=== PATIENT | male | born 1975 | race American Indian/Alaskan Native ===

== ENCOUNTER 2017-02-20 22:02 | Observation (INO) | payer OTHER ==
--- NOTE | 2017-02-20 22:43 | ED PDOC ---
Syncope/Near Syncope/Dizzyness Time Seen by Provider: 02/20/17 22:09 Chief Complaint (Nursing): Substance Abuse Chief Complaint (Provider): Syncope History Per: Patient, Family () History/Exam Limitations: no limitations Onset/Duration Of Symptoms: Mins (prior to arrival) Current Symptoms Are (Timing): Gone Now (syncopal symptoms are gone now, patient has chest pain after CPR.) Activity At Onset Of Symptoms: Sitting Associated Symptoms Preceding Syncopal Episode: Other (shortness of breath) Severity: Moderate Additional Complaint(s): 41 year old male with no pertinent medical history is brought into the ED by EMS with he for complaints of a syncopal episode. HPI as per and patient: Patient was sitting in his car when he suddenly felt shortness of breath. His found him unconscious and unresponsive in his van, but heard breath sounds (did not check for a pulse). She took him out of the car and started giving him CPR. EMS came and patient was alert and oriented upon EMS arrival. He reports feeling left sided chest pain after the CPR which is exacerbated by inspiration and when he touches it. He denies having any other medical complaints. Of note: Patient admits to taking oxicodone that he got from his friend, along with naproxin for a leg cramp. PMD: patient does not have a PMD. Past Medical History Reviewed: Historical Data, Nursing Documentation, Vital Signs Vital Signs: Last Vital Signs Temp 97.9 F 02/20/17 22:04 Pulse 88 02/20/17 22:04 Resp 16 02/20/17 22:04 BP 119/87 02/20/17 22:04 Pulse Ox 100 02/20/17 22:04 - Medical History PMH: Asthma - Surgical History Surgical History: No Surg Hx - Family History Family History: States: Unknown Family Hx - Living Arrangements Living Arrangements: With Family - Social History Alcohol: None Drugs: Opiates (oxycodone) - Allergies Allergies/Adverse Reactions: Allergies Allergy/AdvReac Type Severity Reaction Status Date / Time No Known Allergies Allergy Verified 02/20/17 22:07 Review of Systems ROS Statement: Except As Marked, All Systems Reviewed And Found Negative Cardiovascular: Positive for: Chest Pain Respiratory: Positive for: Shortness of Breath Neurological: Positive for: Other (syncopal episode) Physical Exam - Reviewed Nursing Documentation Reviewed: Yes Vital Signs Reviewed: Yes - Physical Exam Appears: Positive for: Well, Non-toxic, No Acute Distress Head Exam: Positive for: ATRAUMATIC, NORMOCEPHALIC Skin: Positive for: Normal Color, Warm, Dry Eye Exam: Positive for: Normal appearance, EOMI, PERRL Cardiovascular/Chest: Positive for: Regular Rate, Rhythm. Negative for: Chest Non Tender (bilateral chest wall tenderness), Edema, Murmur Respiratory: Positive for: Normal Breath Sounds. Negative for: Crackles, Rhonchi, Wheezing, Respiratory Distress Extremity: Positive for: Normal ROM, Capillary Refill (normal). Negative for: Tenderness, Calf Tenderness, Swelling Neurologic/Psych: Positive for: Alert, Oriented (3x) - Laboratory Results Result Diagrams: 02/20/17 22:48 02/20/17 22:48 - ECG ECG: Positive for: Interpreted By Me, Viewed By Co ECG Rhythm: Positive for: Normal QRS, Normal ST Segment, Sinus Rhythm. Negative for: ST/T Changes Rate: 76 O2 Sat by Pulse Oximetry: 100 (RA) Pulse Ox Interpretation: Normal - Radiology X-Ray: Interpreted by Me, Viewed By Co X-Ray Interpretation: No Acute Disease - Progress Re-evaluation Time: 23:28 Condition: Re-examined, Improving,but remains with symptoms Medical Decision Making Medical Decision Makin:09 Initial impression: 41 year old patient status post syncopal episode. Differential diagnoses include but are not limited to cardiac dysrhythmia, opioid abuse. Less Likely diagnoses but also considered are cardiac arrest with bystander CPR. Initial plan: * CT chest w/ contrast * EKG * alcohol serum * BMP * drug screen urinary * troponin I * CBC * XRay chest 1 view * reevaluation Scribe Attestation: Documented by Phyllis Jo, acting as a scribe for Hanna Melchor MD. Provider Scribe Attestation: All medical record entries made by the Scribe were at my direction and personally dictated by me. I have reviewed the chart and agree that the record accurately reflects my personal performance of the history, physical exam, medical decision making, and the department course for this patient. I have also personally directed, reviewed, and agree with the discharge instructions and disposition. Disposition - Clinical Impression Clinical Impression: Chest pain, Syncope - Patient ED Disposition Is Patient to be Admitted: Transfer of Care - Disposition Disposition: Transfer of Care Disposition Time: 23:59 Condition: FAIR Patient Signed Over To: Patrice Alvarado Handoff Comments: pending CT chest
[2017-02-20 22:50] LABS: BASO % 0.4 % (0.0-2.0); EOS # 0.2 K/uL (0.0-0.7); EOS % 2.2 % (0.0-4.0); HEMATOCRIT 38.7 % (35.0-51.0); LYMPH # 2.1 K/uL (1.0-4.3); LYMPH % 28.1 % (20.0-40.0); MEAN CELL VOLUME 85.3 fl (80.0-94.0); MEAN CORPUSCULAR HGB CONC 32.8 g/dL (33.0-37.0); MEAN PLATELET VOLUME 7.3 fl (7.2-11.7); MONO # 0.5 K/uL (0.0-0.8); MONO % 6.7 % (0.0-10.0); NEUT # 4.7 K/uL (1.8-7.0); NEUT % 62.6 % (50.0-75.0); NRBC % 0.1 % (0.0-0.0); RED CELL DISTRIBUTION WIDTH 13.3 % (11.5-14.5); WHITE BLOOD COUNT 7.5 K/uL (4.8-10.8)
[2017-02-20 23:05] LABS: ALCOHOL SERUM < 10 mg/dl (0-10); BLOOD UREA NITROGEN 12 mg/dl (9-20); CALCIUM 9.5 mg/dL (8.4-10.2); CARBON DIOXIDE 26 mmol/L (22-30); CHLORIDE 102 mmol/L (98-107); GFR AFRICAN-AMERICAN > 60; GLUCOSE,RANDOM 114 mg/dL (75-110); POTASSIUM 3.4 MMOL/L (3.6-5.0); SODIUM 138 mmol/l (132-148)
[2017-02-20] MEDS ORDERED: Sodium Chloride 0.9% 50 ML IV ONE (23:23)
[2017-02-20] MEDS ORDERED: Iohexol 300 100 ML IJ ONE (23:23)
--- NOTE | 2017-02-21 00:14 | ED PDOC ---
- Laboratory Results Result Diagrams: 02/20/17 22:48 02/20/17 22:48 - ECG O2 Sat by Pulse Oximetry: 100 (RA) Medical Decision Making Medical Decision Making: Transfer of care from Dr. Melchor to Dr. Patrice Alvarado at [address] scan and admission. 0012 CT Chest With Intravenous Contrast Impression: 1. No evident acute abnormality. No etiology for the patient's chest pain is identified. 2.. Non-acute findings as described above. The physician spoke with Dr. Miranda (Hospitalist) who has agreed to admit the patient. Dx: Chest Pain and Syncope Scribe Attestation Documented by Carmencita Rhodes acting as a scribe for Patrice Alvarado MD. Provider Attestation: All medical record entries made by the Scribe were at my direction and personally dictated by me. I have reviewed the chart and agree that the record accurately reflects my personal performance of the history, physical exam, medical decision making, and the department course for this patient. I have also personally directed, reviewed, and agree with the discharge instructions and disposition. Disposition - Clinical Impression Clinical Impression: Chest pain, Syncope - POA Present On Arrival: None - Disposition Disposition: Hospitalized as Observation Patient Disposition Time: 01:00 Condition: FAIR
--- NOTE | 2017-02-21 00:56 | CP.PCM.HP ---
History of Present Illness - History of Present Illness History of Present Illness: PCP: None Chief complaint: Found Unresponsive in van HPI: The hx was obtained from the medical chart, the patient and his . He is a 41 years old male with hx of asthma, the last crisis being one month ago. He referred that he was sitting, then had a sudden unset of severe SOB. His next memory was his doing chest compressions on him and him having severe chest pain on inspiration. His mentioned that she found him unresponsive in his van with harsh breath sounds. She removed him from the van and began CPR and called EMS. The patient was awake, alert and oriented when EMS arrived. The patient complains of left sided pleuritic chest pain and referred that he had taken Oxycodone and Naprosyn prior for leg cramps. PMH: Asthma PSH: Left hand surgery for Benign tumor SH: light [id number] for 3days; No alcohol, No illegal drugs; Live with family Works driving school bus FH: No known family hx Allergies: NKDA Present on Admission - Present on Admission Any Indicators Present on Admission: No History of DVT/PE: No History of Uncontrolled Diabetes: No Urinary Catheter: No Decubitus Ulcer Present: No Review of Systems - Constitutional Constitutional: Headache. absent: Anorexia, Chills, Fatigue, Fever, Weakness - EENT Eyes: absent: Blurred Vision, Diplopia, Photophobia, Requires Corrective Lenses Ears: absent: Decreased Hearing, Ear Discharge, Ear Pain, Tinnitus Nose/Mouth/Throat: absent: Nasal Congestion, Nasal Discharge, Nasal Trauma, Sinus Pain, Sinus Pressure - Cardiovascular Cardiovascular: Chest Pain. absent: Dyspnea, Leg Edema, Orthopnea - Respiratory Respiratory: absent: Cough, Dyspnea, Wheezing, Stridor - Gastrointestinal Gastrointestinal: absent: Abdominal Pain, Diarrhea, Nausea, Vomiting - Genitourinary Genitourinary: absent: Dysuria, Hematuria, Urinary Frequency, Urinary Urgency - Musculoskeletal Musculoskeletal: absent: Muscle Weakness Additional comments: Left chest wall pain - Integumentary Integumentary: absent: Pruritus, Rash, Skin Ulcer, Sores, Striae, Swelling - Neurological Neurological: absent: Confusion, Dizziness, Vertigo, Weakness - Psychiatric Psychiatric: absent: Anxiety, Depression, Panic Attacks - Endocrine Endocrine: absent: Palpitations, Polydipsia, Polyphagia, Polyuria - Hematologic/Lymphatic Hematologic: absent: Easy Bleeding, Easy Bruising Past Patient History - Past Social History Smoking Status: Current Some Days Smoker Cigar Use: No Alcohol: None Drugs: Opiates (oxycodone) Home Situation {Lives}: With Family - CARDIAC Hx Cardiac Disorders: No - PULMONARY Hx Asthma: Yes - NEUROLOGICAL Hx Neurological Disorder: No - HEENT Hx HEENT Problems: No - RENAL Hx Chronic Kidney Disease: No - ENDOCRINE/METABOLIC Hx Endocrine Disorders: No - INTEGUMENTARY Hx Dermatological Problems: No - MUSCULOSKELETAL/RHEUMATOLOGICAL Hx Musculoskeletal Disorders: No - GASTROINTESTINAL Hx Gastrointestinal Disorders: No - GENITOURINARY/GYNECOLOGICAL Hx Genitourinary Disorders: No - PSYCHIATRIC Hx Psychophysiologic Disorder: No Hx Substance Use: Yes - SURGICAL HISTORY Hx Surgeries: Yes Other/Comment: left hand surgery (benign tumor) - ANESTHESIA Hx Anesthesia: Yes Hx Anesthesia Reactions: No Meds Allergies/Adverse Reactions: Allergies Allergy/AdvReac Type Severity Reaction Status Date / Time No Known Allergies Allergy Verified 02/20/17 22:07 Physical Exam - Constitutional Appears: No Acute Distress - Head Exam Head Exam: ATRAUMATIC, NORMAL INSPECTION, NORMOCEPHALIC - Eye Exam Eye Exam: EOMI, Normal appearance Pupil Exam: NORMAL ACCOMODATION, PERRL - ENT Exam ENT Exam: Mucous Membranes Moist, Normal Exam, Normal External Ear Exam, Normal Oropharynx - Neck Exam Neck exam: Positive for: Full Rom, Normal Inspection. Negative for: Lymphadenopathy, Tenderness - Respiratory Exam Respiratory Exam: Clear to Auscultation Bilateral. absent: Rales, Rhonchi, Wheezes - Cardiovascular Exam Cardiovascular Exam: REGULAR RHYTHM, RRR. absent: Gallop, JVD - GI/Abdominal Exam GI & Abdominal Exam: Normal Bowel Sounds, Soft. absent: Mass, Organomegaly, Tenderness - Rectal Exam Rectal Exam: Deferred - Extremities Exam Extremities exam: Positive for: full ROM, normal inspection. Negative for: calf tenderness Additional comments: Left chest wall tenderness - Back Exam Back exam: NORMAL INSPECTION. absent: CVA tenderness (L), CVA tenderness (R) - Neurological Exam Neurological exam: Alert, CN II-XII Intact, Oriented x3, Reflexes Normal - Psychiatric Exam Psychiatric exam: Normal Affect, Normal Mood - Skin Skin Exam: Dry, Intact, Normal Color, Warm Results - Vital Signs Recent Vital Signs: Last Vital Signs Temp 97.9 F 02/20/17 22:04 Pulse 76 02/20/17 23:56 Resp 16 02/20/17 22:04 BP 119/87 02/20/17 22:04 Pulse Ox 100 02/21/17 00:18 - Labs Result Diagrams: 02/20/17 22:48 02/20/17 22:48 Labs: Laboratory Results - last 24 hr 02/20/17 02/20/17 22:48 22:48 WBC 7.5 RBC 4.53 Hgb 12.7 Hct 38.7 MCV 85.3 MCH 28.0 MCHC 32.8 L RDW 13.3 Plt Count 239 MPV 7.3 Neut % (Auto) 62.6 Lymph % (Auto) 28.1 [place] % (Auto) 6.7 Eos % (Auto) 2.2 Baso % (Auto) 0.4 Neut # 4.7 Lymph # 2.1 [place] # 0.5 Eos # 0.2 Baso # 0.0 Sodium 138 Potassium 3.4 L Chloride 102 Carbon Dioxide 26 Anion Gap 13 BUN 12 Creatinine 0.8 Est GFR ( Amer) > 60 Est GFR (Non-Af Amer) > 60 Random Glucose 114 H Calcium 9.5 CK-MB (Mass) 0.37 Troponin I < 0.0120 Alcohol, Quantitative < 10 - Impressions Impression: NSR 76/min - Imaging and Cardiology CT scan - chest Status: Report reviewed by me Additional comment: Impression: 1. No evident acute abnormality. No etiology for the patient's chest pain is identified. 2.. Non-acute findings as described above. Chest x-ray Status: Image reviewed by me Additional comment: No infiltrates Assessment & Plan - Assessment and Plan (Free Text) Assessment: #.AMS found unresponsive #. Musculoskeletal chest wall pain #. Hypokalemia #. Anemia #. Hx of Asthma Plan: 41 years old male with hx of asthma, was sitting, when had a sudden unset of severe SOB. His next memory was his doing chest compressions on him and him having severe chest pain on inspiration. His mentioned that she found him unresponsive in his van with harsh breath sounds. She removed him from the van and began CPR and called EMS. The patient was awake, alert and oriented when EMS arrived. #.AMS with unresponsive probably due to depressed respiration by the oxycodone. - Neurochecks q4hrs #. Musculoskeletal chest wall pain r/o ACS - Consult cardiology Dr Ng - Serial troponin - Serial EKG - ASA/ lipid panel - pain management with Toradol #. Hypokalemia - Potassium repleated - Follow electrolytes #. Anemia - follow HB #. Hx of Asthma #. DVT prophylaxix with Lovenox #. Code Status: Full - Date & Time Date: 02/21/17 Time: 00:56
[2017-02-21] MEDS ORDERED: Potassium Chloride 20 mEq ER Tab PO ONE ×2 (01:34→02:19)
[2017-02-21 03:43] VITALS: RESP 18
[2017-02-21 07:53] VITALS: TEMP 98.2
--- NOTE | 2017-02-21 08:11 | CT ---
PROCEDURE: CT Chest with contrast HISTORY: chest pain COMPARISON: None. TECHNIQUE: Contiguous axial images were obtained through the chest with intravenous contrast enhancement. Sagittal and coronal reconstructions were performed. IV contrast: 90 cc Omnipaque 300. Radiation dose (DLP): 182.88 S mGy-cm. This CT exam was performed using one or more of the following dose reduction techniques: Automated exposure control, adjustment of the mA and/or kV according to patient size, and/or use of iterative reconstruction technique. FINDINGS: LUNGS: Clear lungs. Visualized airway clear. MEDIASTINUM: Unremarkable thoracic aorta. No aneurysm or dissection. Normal sized heart. Main pulmonary artery unremarkable. No vascular congestion. No lymphadenopathy. PLEURA: No pleural fluid. No pneumothorax. BONES: No fracture. No destructive lesion. UPPER ABDOMEN: Grossly unremarkable. OTHER FINDINGS: None. IMPRESSION: No acute findings related to/accounting for the clinical presentation. Concordant results (preliminary interpretation) provided by [email or web address]. Procedure Completed: 23:44. Preliminary ([facility]) Report: Dictated and Authenticated: 00:12. Final Interpretation: 08:09. February 21, 2017.
--- NOTE | 2017-02-21 08:31 | RAD ---
PROCEDURE: CHEST RADIOGRAPH, 1 VIEW HISTORY: chest pain COMPARISON: None. FINDINGS: LUNGS: Clear. PLEURA: No pneumothorax or pleural fluid seen. CARDIOVASCULAR: No radiographic findings to suggest acute or significant cardiovascular disease. OSSEOUS STRUCTURES: No significant abnormalities. VISUALIZED UPPER ABDOMEN: Normal. OTHER FINDINGS: None. IMPRESSION: No active pulmonary disease.
--- NOTE | 2017-02-21 08:43 | CT ---
PROCEDURE: CT HEAD WITHOUT CONTRAST. HISTORY: syncope COMPARISON: None available. TECHNIQUE: Axial computed tomography images were obtained through the head/brain without intravenous contrast. Radiation dose: Total exam DLP = 1837.98 mGy-cm. This CT exam was performed using one or more of the following dose reduction techniques: Automated exposure control, adjustment of the mA and/or kV according to patient size, and/or use of iterative reconstruction technique. FINDINGS: HEMORRHAGE: No intracranial hemorrhage. BRAIN: No mass effect or edema. No atrophy or chronic microvascular ischemic changes. VENTRICLES: Unremarkable. No hydrocephalus. CALVARIUM: Unremarkable. PARANASAL SINUSES: Unremarkable as visualized. No significant inflammatory changes. MASTOID AIR CELLS: Unremarkable as visualized. No inflammatory changes. OTHER FINDINGS: None. IMPRESSION: No acute intracranial abnormalities. No significant findings to account for the clinical presentation.
--- NOTE | 2017-02-21 08:45 | CP.PCM.CON ---
History of Present Illness - History of Present Illness History of Present Illness: Chief complaint: Found Unresponsive in van HPI: The hx was obtained from the medical chart, the patient and his . He is a 41 years old male with hx of asthma, the last crisis being one month ago. He referred that he was sitting, then had a sudden unset of severe SOB. His next memory was his doing chest compressions on him and him having severe chest pain on inspiration. His mentioned that she found him unresponsive in his van with harsh breath sounds. She removed him from the van and began CPR and called EMS. The patient was awake, alert and oriented when EMS arrived. The patient complains of left sided pleuritic chest pain and referred that he had taken Oxycodone and Naprosyn prior for leg cramps. 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 Troponin:neg EKG: Toxicology: + Opiates The chest apin is reproducible with palpation most likely 2* to CPR from his Past Patient History - Past Medical History & Family History Past Medical History?: Yes - Past Social History Smoking Status: Current Some Days Smoker Cigar Use: No Alcohol: None Drugs: Opiates (oxycodone) Home Situation {Lives}: With Family - CARDIAC Hx Cardiac Disorders: No - PULMONARY Hx Asthma: Yes - NEUROLOGICAL Hx Neurological Disorder: No - HEENT Hx HEENT Problems: No - RENAL Hx Chronic Kidney Disease: No - ENDOCRINE/METABOLIC Hx Endocrine Disorders: No - HEMATOLOGICAL/ONCOLOGICAL Hx Blood Disorders: No Hx AIDS: No Hx Human Immunodeficiency Virus (HIV): No - INTEGUMENTARY Hx Dermatological Problems: No - MUSCULOSKELETAL/RHEUMATOLOGICAL Hx Musculoskeletal Disorders: No - GASTROINTESTINAL Hx Gastrointestinal Disorders: No - GENITOURINARY/GYNECOLOGICAL Hx Genitourinary Disorders: No - PSYCHIATRIC Hx Psychophysiologic Disorder: No Hx Substance Use: Yes - SURGICAL HISTORY Hx Surgeries: Yes Other/Comment: left hand surgery (benign tumor) - ANESTHESIA Hx Anesthesia: Yes Hx Anesthesia Reactions: No Meds Allergies/Adverse Reactions: Allergies Allergy/AdvReac Type Severity Reaction Status Date / Time No Known Allergies Allergy Verified 02/20/17 22:07 - Medications Medications: Current Medications Aspirin (Ecotrin) 81 mg PO DAILY [facility] Enoxaparin Sodium (Lovenox) 40 mg SC DAILY [facility] PRN Reason: Protocol Ketorolac Tromethamine (Toradol) 30 mg IVP Q6 PRN PRN Reason: Pain, severe (8-10) Ketorolac Tromethamine (Toradol) 15 mg IVP Q6 PRN PRN Reason: Pain, moderate (4-7) Results - Vital Signs Recent Vital Signs: Last Vital Signs Temp 98.2 F 02/21/17 07:53 Pulse 70 02/21/17 07:53 Resp 18 02/21/17 07:53 BP 124/76 02/21/17 07:53 Pulse Ox 98 02/21/17 07:53 - Labs Result Diagrams: 02/20/17 22:48 02/21/17 10:00 Assessment & Plan (1) Chest pain Assessment and Plan: 2* to chest compressions Status: Acute (2) Syncope Assessment and Plan: 2* to Opiates Status: Acute - Date & Time Date: 02/21/17 Time: 10:00
[2017-02-21] MEDS ORDERED: Enoxaparin 40 mg Syringe SC SCH (09:00)
[2017-02-21 10:31] LABS: BLOOD UREA NITROGEN 9 mg/dl (9-20); CALCIUM 9.6 mg/dL (8.4-10.2); CARBON DIOXIDE 28 mmol/L (22-30); CHLORIDE 101 mmol/L (98-107); CHOLESTEROL 182 mg/dL (0-199); GFR AFRICAN-AMERICAN > 60; GLUCOSE,RANDOM 89 mg/dL (75-110); POTASSIUM 4.1 MMOL/L (3.6-5.0); SODIUM 139 mmol/l (132-148)
--- NOTE | 2017-02-21 10:53 | CP.PCM.PN ---
Subjective - Date & Time of Evaluation Date of Evaluation: 02/21/17 Time of Evaluation: 10:40 - Subjective Subjective: Hospitalist Progress Note (Patient was seen and examined at 10:40 AM 02/21/17 402 -1) ROS Chest pain on the left only with movement Right Leg Spasming that comes and goes (chronic) Exam Reproducible Left Chest Pain in the the pectoralis and left lateral lower chest area F/U Troponin at 6 AM and 12 PM and negative then discharge NO PMD and will need follow up through [facility] Shravan Callaway D.O. [phone] Objective - Vital Signs/Intake and Output Vital Signs (last 24 hours): Temp Pulse Resp BP Pulse Ox 98.2 F 70 18 124/76 98 02/21/17 07:53 02/21/17 07:53 02/21/17 07:53 02/21/17 07:53 02/21/17 07:53 - Medications Medications: Current Medications Aspirin (Ecotrin) 81 mg PO DAILY [facility] Last Admin: 02/21/17 08:48 Dose: 81 mg Enoxaparin Sodium (Lovenox) 40 mg SC DAILY [facility] PRN Reason: Protocol Last Admin: 02/21/17 08:48 Dose: 40 mg Ketorolac Tromethamine (Toradol) 30 mg IVP Q6 PRN PRN Reason: Pain, severe (8-10) Ketorolac Tromethamine (Toradol) 15 mg IVP Q6 PRN PRN Reason: Pain, moderate (4-7) - Labs Labs: 02/21/17 10:00
[2017-02-21 12:07] VITALS: BP 119/79; PULSE 75; O2SAT 99
--- NOTE | 2017-02-21 16:22 | CP.PCM.DIS ---
Provider - Provider Date of Admission: 02/21/17 00:46 Attending physician: Sawyer Miranda Primary care physician: None Consults: Cardiology Dr. Ng Time Spent in preparation of Discharge (in minutes): 40 Hospital Course - Lab Results Lab Results: Most Recent Lab Values WBC 7.5 K/uL (4.8-10.8) 02/20/17 22:48 RBC 4.53 Mil/uL (4.40-5.90) 02/20/17 22:48 Hgb 12.7 g/dL (12.0-18.0) 02/20/17 22:48 Hct 38.7 % (35.0-51.0) 02/20/17 22:48 MCV 85.3 fl (80.0-94.0) 02/20/17 22:48 MCH 28.0 pg (27.0-31.0) 02/20/17 22:48 MCHC 32.8 g/dL (33.0-37.0) L 02/20/17 22:48 RDW 13.3 % (11.5-14.5) 02/20/17 22:48 Plt Count 239 K/uL (130-400) 02/20/17 22:48 MPV 7.3 fl (7.2-11.7) 02/20/17 22:48 Neut % (Auto) 62.6 % (50.0-75.0) 02/20/17 22:48 Lymph % (Auto) 28.1 % (20.0-40.0) 02/20/17 22:48 [place] % (Auto) 6.7 % (0.0-10.0) 02/20/17 22:48 Eos % (Auto) 2.2 % (0.0-4.0) 02/20/17 22:48 Baso % (Auto) 0.4 % (0.0-2.0) 02/20/17 22:48 Neut # 4.7 K/uL (1.8-7.0) 02/20/17 22:48 Lymph # 2.1 K/uL (1.0-4.3) 02/20/17 22:48 [place] # 0.5 K/uL (0.0-0.8) 02/20/17 22:48 Eos # 0.2 K/uL (0.0-0.7) 02/20/17 22:48 Baso # 0.0 K/uL (0.0-0.2) 02/20/17 22:48 Sodium 139 mmol/l (132-148) 02/21/17 10:00 Potassium 4.1 MMOL/L (3.6-5.0) 02/21/17 10:00 Chloride 101 mmol/L (98-107) 02/21/17 10:00 Carbon Dioxide 28 mmol/L (22-30) 02/21/17 10:00 Anion Gap 13 (10-20) 02/21/17 10:00 BUN 9 mg/dl (9-20) 02/21/17 10:00 Creatinine 0.7 mg/dL (0.8-1.5) L 02/21/17 10:00 Est GFR ( Amer) > 60 02/21/17 10:00 Est GFR (Non-Af Amer) > 60 02/21/17 10:00 Random Glucose 89 mg/dL (75-110) 02/21/17 10:00 Calcium 9.6 mg/dL (8.4-10.2) 02/21/17 10:00 CK-MB (Mass) 0.37 ng/mL (0.0-3.38) 02/20/17 22:48 Troponin I < 0.0120 ng/mL (0.00-0.120) 02/21/17 14:00 Triglycerides 67 mg/DL (0-149) 02/21/17 10:00 Cholesterol 182 mg/dL (0-199) 02/21/17 10:00 LDL Cholesterol Direct 101 mg/dL (0-129) 02/21/17 10:00 HDL Cholesterol 52 MG/DL (30-70) 02/21/17 10:00 Urine Opiates Screen Positive (NEGATIVE) H 02/21/17 00:45 Urine Methadone Screen Negative (NEGATIVE) 02/21/17 00:45 Ur Barbiturates Screen Negative (NEGATIVE) 02/21/17 00:45 Ur Phencyclidine Scrn Negative (NEGATIVE) 02/21/17 00:45 Ur Amphetamines Screen Negative (NEGATIVE) 02/21/17 00:45 U Benzodiazepines Scrn Negative (NEGATIVE) 02/21/17 00:45 U Oth Cocaine Metabols Negative (NEGATIVE) 02/21/17 00:45 U Cannabinoids Screen Negative (NEGATIVE) 02/21/17 00:45 Alcohol, Quantitative < 10 mg/dl (0-10) 02/20/17 22:48 - Hospital Course Hospital Course: He is a 41 years old male with hx of asthma, the last crisis being one month ago. He stated that he was sitting in his van and had a sudden unset of severe SOB after taking Oxycodone and Naprosyn. His next memory was his doing chest compressions on him on the left side (after removing him from the van) after which he started to experience severe chest pain on inspiration. At the time of my exam he is not experiencing the chest pain and it was reproducible on upon palpation inferior to the left nipple, left pectoralis area and the inferior lateral left rib cage. CT Chest showed NO active disease. CT Head showed NO acute intracranial bleeding/abnormality. Chest X Ray showed NO active disease. EKG showed NSR. Troponin x 3 is negative. Hypokalemia has resolved. Currently upon FULL ROS there is NO chest pain, NO Palpitations, NO SOB/Cough/ Wheezing, NO dysphagia/odynophagia, NO abdominal pain, NO n/v/d/c, NO Burning/ Pain with urination, NO lightheadedness/dizziness, NO headache, NO new changes in vision/eye pain, NO new changes in hearing/ear pain, NO paresthesias, NO edema Exam: HEENT: NCA, EOMI, PERRLA, NO cervical/supraclavicular/submandibular lymphadenopathy, NO pharyngeal erythema/exudate, Oral Mucosa and Nasal Turbinates are moist Cardio: NS1 and NS2, NO M/R/G Resp: CTA B/L, NO R/R/W, Left Sided Chest Pain: reproducible on upon palpation inferior to the left nipple, left pectoralis area and the inferior lateral left rib cage. GI: BSx4, Soft, NT, ND, NO HSM, NO guarding/rebound tenderness Ext: Pulses are strong and equal, Capillary Refill is 2 seconds, NO edema Neuro: CN II through XII are grossly intact Patient is stable for discharge. The following instructions were explained to the patient: 1). You need to have a Primary Care Physician to follow up with. Please contact the [facility] in [place] at [phone] to schedule an appointment to take place in the next 7 days. 2). You may take over the counter Ibuprofen 200 mg 1 tablet by mouth every 6 hours as needed for the left sided chest pain. Please make sure that you take with some food and drink plenty of water after taking Ibuprofen. 3). DO NOT TAKE Oxycodone 4). Please take care. Shravan Callaway D.O. Discharge Exam - Head Exam Head Exam: ATRAUMATIC, NORMAL INSPECTION, NORMOCEPHALIC Discharge Plan - Follow Up Plan Condition: FAIR Disposition: HOME/ ROUTINE
--- NOTE | 2017-02-22 02:04 | CARD ---
APPROVED REPORT EKG Measurement Heart [id number] <Conclusion> Normal sinus rhythm Nonspecific T wave abnormality Abnormal ECG
--- NOTE | 2017-02-22 02:16 | CARD ---
APPROVED REPORT EKG Measurement Heart [id number] <Conclusion> Normal sinus rhythm Minimal voltage criteria for LVH, may be normal variant Borderline ECG
== END 2017-02-21 17:00 | disposition home or self-care (01) ==
LOC: H.ER 22:02 → H.ERHOLD 02-21 00:46 → H.TEL 02-21 02:51
PROVIDERS: ADMIT Internal Medicine; ATTEND Internal Medicine
DX: R07.89 Other chest pain (principal); R55 Syncope and collapse; T40.2X5A Adverse effect of other opioids, initial encounter; R41.82 Altered mental status, unspecified; E87.6 Hypokalemia; J45.909 Unspecified asthma, uncomplicated; D64.9 Anemia, unspecified; F17.200 Nicotine dependence, unspecified, uncomplicated; Y92.89 Other specified places as the place of occurrence of the external cause